=== PATIENT | female | born 1990 | race Caucasian/White ===

== ENCOUNTER 2018-07-25 00:44 | Outpatient (CLI) | payer MEDICAID, SELFPAY ==
--- NOTE | 2018-07-25 09:01 | DI.US_ITS ---
SYMPTOMS/DIAGNOSIS: DATING OB ULTRASOUND: OB ultrasound was performed utilizing first trimester protocol. biometry is consistent with a gestational age of 14 weeks 4 days and an EDC of 01/19/19. The placenta is anterior. No evidence of placenta previa. Visually there is a normal quantity of amniotic fluid. cardiac activity is observed at a rate 155 bpm. Many abnormalities cannot be diagnosed. A normal exam does not exclude a congenital anomaly. Radiology No. [id number] LMP: 04/11/18 Exam Date: 07/25/18 [facility] wks days on EDC ([facility]) Confirmed: HISTORY: dating PREDICTED GESTATIONAL AGE NUMBER 15 weeks with a range of 14 weeks to 16 weeks. 1 Determined by 1STUS___ LMP X HISTORY Info. pertaining to fetus # PLACENTA PRESENTATION Grade 0 Cephalic___ Anterior X Posterior___ Breech____ Right Left Transverse(head right___ Fundal___Low-lying___Previa___ Transverse(head left___ Varying X BIOMETRY AMNIOTIC FLUID BPD: 27 mm 14+5 weeks Normal HC: 102 mm 14+5 weeks Oligo Polyhydramnios AC: 83 mm 14+5 weeks FL: 14 mm 14+2 weeks AMNIOTIC FLUID INDEX >26 WK CRL: mm weeks Cisterna Magna: mm CI: 80 RUQ: LUQ Cerebellum: cm EFW: grams Percentile RLQ: LLQ Total: cms Composite AGE= 14+4 wks EDC by US 01/19/19 BIOPHYSICAL PROFILE ANATOMY IDENTIFIED SCORE 0/2 Heart: 4-Chamber X Rate: 155 BPM LVOT: RVOT: Amniotic Fluid(>2cms)____ Stomach: X Kidneys: Respirations (>30 secs) Bladder: Post. Fossa: Body Flex/Extension 3 vessel cord: Ventricles: cord insertion: X Lips:____ Extremity Flex/Extension spinal morphology: Nose: Total Score= Palate: NS=not seen
== END 2018-07-25 01:04 ==
PROVIDERS: PCP Family Medicine; Visit Provider Nurse Practitioner Family
DX: Z34.92 Encounter for supervision of normal pregnancy, unspecified, second trimester (principal)
CPT/HCPCS: 76801

== ENCOUNTER 2018-07-31 11:53 | Outpatient (CLI) | payer MEDICAID, SELFPAY ==
[2018-07-31 12:23] LABS: Abs Immature Grans 0.02 k/cumm (0.0-0.09); Absolute Basophil Count 0.03 k/cumm (0.0-0.2); Absolute Eosinophil Count 0.05 k/cumm (0.0-0.7); Absolute Lymphocyte Count 1.53 k/cumm (1.2-3.4); Absolute Monocyte Count 0.91 k/cumm (0.11-0.7); Basophils % 0.3; Eosinophils % 0.4; HCT 37.2 % (36.0-46.0); HGB 12.8 g/dL (12.0-15.5); Immature Grans % 0.2; Lymphocytes % 13.3; Mean Corp. HGB Concentration 34.4 g/dL (32.0-36.0); Mean Corpuscular Hemoglobin 30.8 pg (27.0-33.0); Mean Corpuscular Volume 89.4 fL (80-95); Monocytes % 7.9; Neutrophils % 77.9; Platelet Count 239 x1000/uL (130-400); RBC 4.16 m/cumm (4.00-5.20); RBC Distribution Width 13.9 % (11.7-14.6); White Blood Cell Count 11.54 k/cumm (4.4-10.8)
[2018-07-31 12:24] LABS: Absolute Neutrophil Count 8.99 k/cumm (1.2-6.7)
[2018-07-31 13:35] LABS: TSH (W/Ref FT4) 3.74 uIU/mL (0.358-3.74)
[2018-08-01 08:52] LABS: Hepatitis B Surface Ag Negative (NEGAT)
[2018-08-01 12:29] LABS: Rubella IgG Ab (UVM) Positive; Syphilis Serology (RPR) Negative (Negative); Varicella IgG Antibody Positive
[2018-08-01 13:08] LABS: HIV-1/2 Ag & Ab Screen Negative (NEGAT); Hepatitis C Ab w Rflx HCV PCR Negative (NEGAT)
== END 2018-07-31 12:13 ==
PROVIDERS: PCP Family Medicine; Visit Provider Advanced Practice Midwife
DX: Z34.90 Encounter for supervision of normal pregnancy, unspecified, unspecified trimester (principal)
CPT/HCPCS: 36415; 80055; 86787; 86803; 86850; 86900; 86901; 87340; 87389; 84443; 86592; 86762

== ENCOUNTER 2018-07-31 13:34 | Outpatient (REF) | payer MEDICAID, SELFPAY ==
--- NOTE | 2018-07-31 11:30 | PAPFT_PTH ---
PATIENT: Melissa De La Cruz LOC: YOUNG U#:[id number] AGE/SX: 28/F ROOM: RE07/31/[address]: Anup Morales RN : 1990 BED: DIS: 07/31/2018 SPEC #: [id number] RECD: 07/31/18 18:11 STATUS: MONIKA COLEMAN #: [id number] MARVA: 07/31/18 11:[address]: Anup Morales DEPT: [facility] Cytology RECD BY: Alicia Do ENTERED: 07/31/18 18:11 SP TYPE: PAPFT OTHR DR: Leonor Quezada Tissues: 1 - CX/ENDOCX FOR PAP SMEARS Procedures: PAP THIN PREP/[facility] Screening Comments: [id number]
[2018-07-31 15:22] LABS: *AMPHETAMINES SCREEN URINE Negative (Negative); *BARBITURATES SCREEN URINE Negative (Negative); *BENZODIAZEPINES SCREEN URINE Negative (Negative); Cannabinoids THC Negative (Negative); Cocaine Screen,Urine Negative (Negative); METHADONE URINE SCREEN Negative (Negative); OPIATES URINE SCREEN Negative (Negative)
[2018-07-31 15:29] LABS: Tricyclic Antidepressants Negative (Negative)
[2018-08-01 14:33] LABS: Chlamydia Result Negative; GC Result Negative; Specimen Description CERVIX
[2018-08-03 11:09] LABS: Buprenorphine Negative; Norbuprenorphine Negative
== END 2018-07-31 13:54 ==
LOC: LBN 13:34
PROVIDERS: PCP Family Medicine; Visit Provider Advanced Practice Midwife
DX: Z34.91 Encounter for supervision of normal pregnancy, unspecified, first trimester (principal); Z11.3 Encounter for screening for infections with a predominantly sexual mode of transmission; Z12.4 Encounter for screening for malignant neoplasm of cervix; Z11.51 Encounter for screening for human papillomavirus (HPV)
CPT/HCPCS: 80307; 87491; 87591; 88142; 87086

== ENCOUNTER 2018-08-22 00:10 | Outpatient (CLI) | payer MEDICAID, SELFPAY ==
--- NOTE | 2018-08-22 08:01 | DI.US_ITS ---
Predicted Gestational Age: Indication/History: 19 Wks Range: 18 to 20 Prior US done on: Determined by: First US LMP X History EDC by prior US: 01/16/19 ([facility]) For multiple gestations: Baby PLACENTA: Grade: I Location: X Anterior Posterior PRESENTATION: RT LT LOW LYING PREVIA Cephalic Trans (Head RT LT ) Varied X Breech BIOMETRY: Anatomy Identified: BPD: 38 mm 17.4 wks 5% 4 chamber Heart X Heart Rate 157 BPM HC: 147 mm 17.6 wks 4% LVOT X Post Fossa X AC: 141 mm 19.3 wks RVOT X Ventricles X FL: 27 mm 18.1 wks Stomach X Nose X Bladder X Lips X Cisterna Magna: 2.5 mm CI: 76 Kidneys X Palate X Cerebellum: 1.65 mm low 3 vessel cord X Spine X EFW: 253 grms 29TH % Cord Insertion X NS= not seen Composite Age (US) 18.2 wks Many abnormalities cannot be diagnosed. A normal exam does not exclude congenital abnormality. EDC by US 01/21/19 Amniotic Fluid Index Normal COMMENTS: RUQ: LUQ: RLQ: LLQ: Total: cm Biophysical Profile: Score 0/2 TIARA (>2cm) Respirations (>30 sec) Body flexion/extension Extremity flexion.extension TOTAL SCORE Comparison is made with 07/25/18. The fetus was in variable position during the exam. The placenta is anterior and fundal. The biometric measurements correspond to 18 weeks 2 days. The estimated weight corresponds to the 29th percentile. The BPD measurements and head circumference measurements correspond to the 5th percentile for gestational age. No abnormality is visible. The amniotic fluid amount appears normal. IMPRESSION: cranial measurements are low for gestational age however there is no visible anomaly.
== END 2018-08-22 00:30 ==
PROVIDERS: PCP Family Medicine; Visit Provider Advanced Practice Midwife
DX: Z34.92 Encounter for supervision of normal pregnancy, unspecified, second trimester (principal); Z36.89 Encounter for other specified antenatal screening
CPT/HCPCS: 76805

== ENCOUNTER 2018-10-16 08:14 | Outpatient (CLI) | payer MEDICAID, SELFPAY ==
[2018-10-16 14:23] LABS: HCT 35.8 % (36.0-46.0); HGB 12.2 g/dL (12.0-15.5); Mean Corp. HGB Concentration 34.1 g/dL (32.0-36.0); Mean Corpuscular Hemoglobin 31.2 pg (27.0-33.0); Mean Corpuscular Volume 91.6 fL (80-95); Mean Platelet Volume 10.4 fL (8.0-11.0); Platelet Count 275 x1000/uL (130-400); RBC 3.91 m/cumm (4.00-5.20); RBC Distribution Width 13.5 % (11.7-14.6); White Blood Cell Count 11.35 k/cumm (4.4-10.8)
[2018-10-16 14:50] LABS: Glucose,1 Hr (Glucola) 83 mg/dL (80-140)
== END 2018-10-16 08:34 ==
PROVIDERS: PCP Family Medicine; Visit Provider Obstetrics & Gynecology
DX: Z34.93 Encounter for supervision of normal pregnancy, unspecified, third trimester (principal)
CPT/HCPCS: 36415; 82950; 85027

== ENCOUNTER 2018-11-13 14:52 | Outpatient (CLI) | payer MEDICAID, SELFPAY ==
[2018-11-13 15:46] LABS: Abs Immature Grans 0.11 k/cumm (0.0-0.09); Absolute Basophil Count 0.02 k/cumm (0.0-0.2); Absolute Eosinophil Count 0.11 k/cumm (0.0-0.7); Absolute Lymphocyte Count 0.96 k/cumm (1.2-3.4); Absolute Monocyte Count 0.54 k/cumm (0.11-0.7); Absolute Neutrophil Count 8.71 k/cumm (1.2-6.7); Basophils % 0.2; Eosinophils % 1.1; HCT 34.3 % (36.0-46.0); HGB 11.6 g/dL (12.0-15.5); Immature Grans % 1.1; Lymphocytes % 9.2; Mean Corp. HGB Concentration 33.8 g/dL (32.0-36.0); Mean Corpuscular Hemoglobin 30.4 pg (27.0-33.0); Mean Platelet Volume 9.2 fL (8.0-11.0); Monocytes % 5.2; Neutrophils % 83.2; Platelet Count 502 x1000/uL (130-400); RBC 3.81 m/cumm (4.00-5.20); RBC Distribution Width 13.6 % (11.7-14.6); White Blood Cell Count 10.45 k/cumm (4.4-10.8)
[2018-11-14 16:25] LABS: CMV Ab, IgM Negative (Negative); Toxoplasma Ab, IgG Negative (Negative); Toxoplasma Ab, IgM Negative (Negative); Toxoplasma IgG Value <3 IU/mL
[2018-11-14 22:15] LABS: Parvovirus B19 Ab, IgG Negative (Negative); Parvovirus B19 Ab, IgM Negative (Negative)
[2018-11-16 12:35] LABS: Measles IgG Antibody Positive
[2018-11-17 09:39] LABS: Misc Referral (UVM) See Comments
== END 2018-11-13 15:12 ==
PROVIDERS: PCP Family Medicine; Visit Provider Obstetrics & Gynecology
DX: R21 Rash and other nonspecific skin eruption (principal)
CPT/HCPCS: 36415; 86765; 85025; 86645; 86747; 86777; 86778

== ENCOUNTER 2018-12-18 01:25 | Outpatient (CLI) | payer MEDICAID, SELFPAY ==
--- NOTE | 2018-12-18 10:53 | DI.US_ITS ---
SYMPTOM/DIAGNOSIS: EGA Z34.90 OB ULTRASOUND, LIMITED: 12/18 Limited third trimester protocol ultrasound was performed. biometry is consistent with gestational age of 34 weeks, 6 days and EDC 01/23/19. Placenta is anterior with no evidence of placenta previa. There is visually a mildly increased quantity of amniotic fluid and the TIARA is 23 consistent with borderline polyhydramnios. The fetus is in breech presentation. cardiac activity is noted at a rate of 150 BPM Predicted Gestational Age: Indication/History: 35 +6 Wks Range: 34 +6 to 36 +6 Prior US done on: Determined by: First US LMP History EDC by prior US: 01/16/19 For multiple gestations: Baby PLACENTA: Grade: II Location: Anterior PRESENTATION: RT LT LOW LYING PREVIA Cephalic Trans (Head RT LT ) Varied Breech XX BIOMETRY: Anatomy Identified: BPD: 83 mm 33 +2 wks 4 chamber Heart Heart Rate 150 BPM HC: 317 mm 35 +5 wks LVOT Post Fossa AC: 311 mm 35 wks RVOT Ventricles FL: 68 mm 35 +1 wks Stomach Nose Bladder Lips Cisterna Magna: mm CI: 79 Kidneys Palate Cerebellum: mm 3 vessel cord Spine EFW: 2545 grms 25 % Cord Insertion NS= not seen Composite Age (US) 34 +6 wks Many abnormalities cannot be diagnosed. A normal exam does not exclude congenital abnormality. EDC by US 01/23/19 Amniotic Fluid Index: Polyhydramnios COMMENTS: RUQ: 7.57 LUQ: 5.84 RLQ: 4.52 LLQ: 5.32 Total: 23.3 cm Biophysical Profile: Score 0/2 TIARA (>2cm) Respirations (>30 sec) Body flexion/extension Extremity flexion/extension TOTAL SCORE
== END 2018-12-18 01:45 ==
PROVIDERS: PCP Family Medicine; Visit Provider Obstetrics & Gynecology
DX: O32.1XX1 Maternal care for breech presentation, fetus 1 (principal); O40.3XX1 Polyhydramnios, third trimester, fetus 1; Z34.93 Encounter for supervision of normal pregnancy, unspecified, third trimester; Z36.85 Encounter for antenatal screening for Streptococcus B
CPT/HCPCS: 76816; 80307; 87081

== ENCOUNTER 2018-12-18 13:45 | Outpatient (REF) | payer MEDICAID, SELFPAY ==
[2018-12-18 15:29] LABS: *AMPHETAMINES SCREEN URINE Negative (Negative); *BARBITURATES SCREEN URINE Negative (Negative); *BENZODIAZEPINES SCREEN URINE Negative (Negative); Cannabinoids THC Negative (Negative); Cocaine Screen,Urine Negative (Negative); METHADONE URINE SCREEN Negative (Negative); OPIATES URINE SCREEN Negative (Negative)
[2018-12-18 15:36] LABS: Tricyclic Antidepressants Negative (Negative)
[2018-12-23 22:53] LABS: Buprenorphine Negative; Norbuprenorphine Negative
== END 2018-12-18 14:05 ==
LOC: LBN 13:45
PROVIDERS: PCP Family Medicine; Visit Provider Obstetrics & Gynecology
DX: Z34.93 Encounter for supervision of normal pregnancy, unspecified, third trimester (principal); Z36.85 Encounter for antenatal screening for Streptococcus B
CPT/HCPCS: 80307; 87081

== ENCOUNTER 2019-01-23 08:23 | Inpatient (IN) | payer MEDICAID, SELFPAY ==
[2019-01-23 09:44] LABS: Abs Immature Grans 0.05 k/cumm (0.0-0.09); Absolute Basophil Count 0.02 k/cumm (0.0-0.2); Absolute Eosinophil Count 0.03 k/cumm (0.0-0.7); Absolute Lymphocyte Count 1.36 k/cumm (1.2-3.4); Absolute Monocyte Count 0.75 k/cumm (0.11-0.7); Absolute Neutrophil Count 7.49 k/cumm (1.2-6.7); Basophils % 0.2; Eosinophils % 0.3; HCT 34.8 % (36.0-46.0); Immature Grans % 0.5; Mean Corp. HGB Concentration 34.5 g/dL (32.0-36.0); Mean Corpuscular Hemoglobin 31.4 pg (27.0-33.0); Mean Corpuscular Volume 91.1 fL (80-95); Mean Platelet Volume 10.6 fL (8.0-11.0); Monocytes % 7.7; Neutrophils % 77.3; Platelet Count 214 x1000/uL (130-400); RBC 3.82 m/cumm (4.00-5.20); RBC Distribution Width 14.7 % (11.7-14.6)
[2019-01-23] MEDS: Normal Saline Flush 10 ML SYR IVP (09:54)
[2019-01-23] MEDS: miSOPROStol 25 MCG TAB 50 MCG PO ×2 (10:29→14:33)
--- NOTE | 2019-01-23 21:36 | HPE_ITS ---
Date of service: 01/23/19 Time of Service: 10:00 Assessment and Plan Assessment and plan (1) Post-dates : Status: Acute Assessment and plan: Admit for cervical ripening and IOL for postdates. Will ripen with oral misoprostol and move to pitocin once cervix is favorable. GBS is negative. History of Present Illness History of Present Illness Chief Complaint: Post dates Narrative: 29 year old @ 41 weeks presents for induction of labor secondary to postdates. has been uncomplicated thus far. She is generally healthy with no chronic medical problems. [facility] Medical History (Updated 01/23/19 @ 21:42 by Otilio Najera MD) eczema (Acute) Natural family planning (Acute) has used with success. Positive test (Acute) Surgical History (Updated 07/20/18 @ 16:23 by Aruna Fuentes NP) wisdom teeth extraction (~2007) Family History Mother No problems noted. Father No problems noted. Sister No problems noted. Sister No problems noted. Sister No problems noted. Sister No problems noted. Sister No problems noted. Sister No problems noted. Sister No problems noted. Brother No problems noted. Brother No problems noted. Brother No problems noted. Grandfather Heart disease Grandfather No problems noted. Grandmother Pulmonary embolism Grandmother Heart disease Daughter No problems noted. Daughter No problems noted. Daughter No problems noted. Social History Smoking/Tobacco Use Status: Never Alcohol Intake: never Substance use type: does not use Female Reproductive History Menstrual Age of Menarche: 15 Duration of menses: 3-5 days control method: natural family planning History History 5 Para 4 Hx # Term Pregnancies 4 Multiple births 0 Hx # Pregnancies 0 Ectopic pregnancies 0 AB induced 0 Hx Number of Living Children 4 AB spontaneous 0 Past Pregnancies Del. Date GA/Weeks # Outcome Route Wgt Sex Labor Lgth Anesthes ia Location Prov Complic 07/25/12 41 No Successful vaginal 7 lb 4 oz Female 15 hrs ashwin pereyra md 12/13/13 41 No Successful vaginal 7 lb 2 oz Female iol for post date s 7.5 hrs clyde sultana 07/30/15 40 No Successful vaginal 7 lb 14 oz Female iol for post hugh es 12 hrs clyde sultana 04/08/17 39 No Successful vaginal 5 lb 5 oz Female iol iugr, 11 hrs rupal hwang md Delivery Date: 07/25/12 On 07/31/18 @ 10:58 BRANDOYARITZAA laceration, yet pt does know degree. as per pt uneventful delivery. al Delivery Date: 12/13/13 On 07/31/18 @ 11:00 BRANDOANEA uneventful delivery, intact. al Delivery Date: 07/30/15 On 07/31/18 @ 11:02 BRANDOANEA uneventful, intact. al Delivery Date: 04/08/17 On 07/31/18 @ 11:04 BRANDO,ANEA uneventful, intact al Meds Home Medications and Allergies Home Medications Medication Instructions Recorded Confirmed Type prenat.vits,grey,vbc-vbhx-ykuuv 1 tab PO DAILY 11/06/18 01/23/19 History Allergies Allergy/AdvReac Type Severity Reaction Status Date / Time Ingredient in Belgian Food Allergy Intermediate Itchy Uncoded 01/16/19 10:26 Rash, swelling Exam Other: On exam cx was FT/60%/-3 with presenting part not in pelvis. Results Labs Result diagrams: 01/23/19 09:28 Labs: Laboratory Results - last 24 hr 01/23/19 01/23/19 09:28 09:28 WBC 9.70 RBC 3.82 L Hgb 12.0 Hct 34.8 L MCV 91.1 MCH 31.4 MCHC 34.5 RDW 14.7 H Plt Count 214 MPV 10.6 Immature Gran % 0.5 Neutrophils % 77.3 Lymphocytes % 14.0 Monocytes % 7.7 Eosinophils % 0.3 Basophils % 0.2 Absolute Neutrophils 7.49 H Absolute Lymphocytes 1.36 Absolute Monocytes 0.75 H Absolute Eosinophils 0.03 Absolute Basophils 0.02 Patient ABO/Rh A Positive Antibody Screen Negative
--- NOTE | 2019-01-23 21:43 | W.PM.PROGNOT ---
Date of Service Date of service: 01/23/19 Time of Service: 20:00 Assessment and Plan Assessment and plan (1) Post-dates : Start date: 01/23/19 Status: Acute Assessment and plan: Continue cervical ripening with misoprostol. Will attempt amniotomy when further cervical dilatation is noted. Subjective Subjective Interval history since last seen: Contractions frequent but mild. Doing well. Objective Objective Clinical Data: Abnormal lab results 01/23/19 Range/Units 09: RBC 3.82 L (4.00-5.20) m/cumm Hct 34.8 L (36.0-46.0) % RDW 14.7 H (11.7-14.6) % Absolute Neutrophils 7.49 H (1.2-6.7) k/cumm Absolute Monocytes 0.75 H (0.11-0.7) k/cumm Laboratory Results WBC 9.70 k/cumm (4.4-10.8) 01/23/19 09: RBC 3.82 m/cumm (4.00-5.20) L 01/23/19 09:28 Hgb 12.0 g/dL (12.0-15.5) 01/23/19 09:28 Hct 34.8 % (36.0-46.0) L 01/23/19 09:28 MCV 91.1 fL (80-95) 01/23/19 09:28 MCH 31.4 pg (27.0-33.0) 01/23/19 09: MCHC 34.5 g/dL (32.0-36.0) 01/23/19 09:28 RDW 14.7 % (11.7-14.6) H 01/23/19 09:28 Plt Count 214 x1000/uL (130-400) 01/23/19 09:28 MPV 10.6 fL (8.0-11.0) 01/23/19 09:28 Immature Gran % 0.5 01/23/19 09:28 Neutrophils % 77.3 01/23/19 09:28 Lymphocytes % 14.0 01/23/19 09:28 Monocytes % 7.7 01/23/19 09:28 Eosinophils % 0.3 01/23/19 09:28 Basophils % 0.2 01/23/19 09:28 Absolute Neutrophils 7.49 k/cumm (1.2-6.7) H 01/23/19 09:28 Absolute Lymphocytes 1.36 k/cumm (1.2-3.4) 01/23/19 09:28 Absolute Monocytes 0.75 k/cumm (0.11-0.7) H 01/23/19 09:28 Absolute Eosinophils 0.03 k/cumm (0.0-0.7) 01/23/19 09:28 Absolute Basophils 0.02 k/cumm (0.0-0.2) 01/23/19 09:28 Patient ABO/Rh A Positive 01/23/19 09:28 Antibody Screen Negative 01/23/19 09:28 Procedures Other Procedure Description/Findings: A bedside ultrasound was performed showing fetus to be in ashley breech presentation. An ECV was performed at the bedside easily with minimal effort on rotation. Ultrasound confirmed rotation to cephalic presentation.
== END 2019-01-25 15:10 | disposition home or self-care (01) | DRG 807 ==
PROVIDERS: Admitting Provider Obstetrics & Gynecology; PCP Family Medicine; Visit Provider Obstetrics & Gynecology
DX: O48.0 Post-term pregnancy (principal); Z37.0 Single live birth; Z3A.41 41 weeks gestation of pregnancy
CPT/HCPCS: 36415; 86850; 86900; 86901; 99223; 99233; 85025; J3490

== ENCOUNTER 2020-12-04 03:50 | Outpatient (CLI) | payer MEDICAID, SELFPAY ==
[2020-12-04 11:39] LABS: Abs Immature Grans 0.04 10^3/uL (0.0-0.06); Absolute Eosinophil Count 0.02 10^3/uL (0.0-0.7); Absolute Lymphocyte Count 1.81 10^3/uL (1.2-3.4); Basophils % 0.2; Eosinophils % 0.2; HCT 37.9 % (36.0-46.0); HGB 12.8 g/dL (11.2-15.7); Immature Grans % 0.3; Lymphocytes % 14.9; MCH 30.3 pg (27.0-33.0); MCHC 33.8 % (32.0-36.0); MCV 89.8 fL (80-95); MPV 10.4 fL (8.0-11.0); Monocytes % 4.9; Neutrophils % 79.5; Nucleated RBC 0 %; Platelet Count 259 10^3/uL (130-400); RBC 4.22 10^6/uL (3.93-5.22); RDW-SD 42.5 fL; WBC 12.15 10^3/uL (4.4-10.8)
[2020-12-04 11:41] LABS: Absolute Basophil Count 0.02 10^3/uL (0.0-0.2); Absolute Neutrophil Count 9.66 10^3/uL (1.2-6.7)
[2020-12-05 09:53] LABS: Hepatitis B Surface Ag Negative (Negative)
[2020-12-05 10:20] LABS: Hepatitis C Ab w Rflx HCV PCR Negative (Negative)
[2020-12-05 10:39] LABS: HIV-1/2 Ag & Ab Screen Negative (Negative)
[2020-12-05 11:18] LABS: Varicella IgG Antibody Positive (See Note)
[2020-12-05 11:22] LABS: Rubella IgG Ab (UVM) Positive (See Note)
[2020-12-06 12:52] LABS: Syphilis Total Ab w/Reflex Nonreactive (Nonreactive)
== END 2020-12-04 03:51 | disposition home or self-care (01) ==
LOC: LBO 03:50
PROVIDERS: Advanced Practice Midwife; PCP Family Medicine; Visit Provider Advanced Practice Midwife
DX: Z34.91 Encounter for supervision of normal pregnancy, unspecified, first trimester (principal); Z11.4 Encounter for screening for human immunodeficiency virus [HIV]; Z11.59 Encounter for screening for other viral diseases; Z01.84 Encounter for antibody response examination; Z3A.11 11 weeks gestation of pregnancy
CPT/HCPCS: 36415; 86787; 86803; 86850; 86900; 86901; 87340; 87389; 85025; 86762; 86780

== ENCOUNTER 2020-12-04 14:42 | Outpatient (REF) | payer MEDICAID, SELFPAY ==
[2020-12-04 14:16] LABS: *AMPHETAMINES SCREEN URINE Negative (Negative); *BARBITURATES SCREEN URINE Negative (Negative); *BENZODIAZEPINES SCREEN URINE Negative (Negative); Cannabinoids THC Negative (Negative); Cocaine Screen,Urine Negative (Negative); METHADONE URINE SCREEN Negative (Negative); OPIATES URINE SCREEN Negative (Negative); Tricyclic Antidepressants Negative (Negative)
[2020-12-05 14:43] LABS: Chlamydia Result Negative (Negative); GC Result Negative (Negative)
[2020-12-10 19:22] LABS: Buprenorphine Negative ng/mL (Cutoff: 5.0); Norbuprenorphine Negative ng/mL (Cutoff: 2.5)
== END 2020-12-04 14:43 | disposition home or self-care (01) ==
LOC: LBN 14:42
PROVIDERS: PCP Family Medicine; Visit Provider Advanced Practice Midwife
DX: Z34.91 Encounter for supervision of normal pregnancy, unspecified, first trimester (principal); Z11.3 Encounter for screening for infections with a predominantly sexual mode of transmission; Z3A.11 11 weeks gestation of pregnancy
CPT/HCPCS: 80307; 87491; 87591; 87086

== ENCOUNTER 2021-01-26 02:04 | Outpatient (CLI) | payer MEDICAID, SELFPAY ==
--- NOTE | 2021-01-26 07:15 | DI.US_ITS ---
Exam(s) US OB 2-3 TRIMESTER EXAM: US OB 2-3 TRIMESTER CLINICAL HISTORY: SURVEY,Z34.92. TECHNIQUE: Transabdominal obstetrical ultrasound was performed. COMPARISON: No exams were available for comparison FINDINGS: There is a single viable intrauterine gestation with cardiac activity identified-150 bpm. Amniotic fluid: There is a normal amount of amniotic fluid. Placental location: The placenta is posterior grade 0,with no evidence of placenta previa.Distance fr om the tip of placenta to the internal cervical os is 3.1 cm. The distance from cord insertion to th e marginal aspect of the placenta is 1.97 cm. ANATOMY: A 3 vessel umbilical cord is seen. A four-chamber cardiac view was obtained. Right and left ventricular outflow tracts were imaged. There are no obvious abnormalities of the spinal column evident. There is no obvious abnormal ity of the anterior abdominal wall. stomach and urinary bladder are identified and there is no evidence of hydronephrosis. No abnormalities of the upper lip region are identified. No evidence of choroid plexus cysts i n the brain. Dating parameters place this at approximately 18 weeks and 6 days gestational age. BPD measures 18 weeks and 0 days HC measures 19 weeks and 1 day AC measures 19 weeks and 2 days FL measures 18 weeks and 6 days Estimated weight is 270 gm-0 pounds 10 ounces Fetus is at the 56th percentile on the Hadlock scale. IMPRESSION:: Single viable intrauterine gestation which is approximately 18 weeks and 6 days gestati onal age, implying an URSZULA of June 23, 2021. There are no obvious anomalies evident on today's study. The placenta is posterior with no evidence of placenta previa. There is a normal amount of amniotic fluid. DATA REPOSITORY:
== END 2021-01-26 02:24 ==
PROVIDERS: PCP Family Medicine; Visit Provider Advanced Practice Midwife
DX: Z34.92 Encounter for supervision of normal pregnancy, unspecified, second trimester (principal); Z3A.18 18 weeks gestation of pregnancy
CPT/HCPCS: 76805

== ENCOUNTER 2021-03-31 02:26 | Outpatient (CLI) | payer MEDICAID, SELFPAY ==
[2021-03-31 11:13] LABS: HCT 36.8 % (36.0-46.0); HGB 12.4 g/dL (11.2-15.7); MCH 31.3 pg (27.0-33.0); MCHC 33.7 % (32.0-36.0); MCV 92.9 fL (80-95); MPV 10.1 fL (8.0-11.0); Platelet Count 226 10^3/uL (130-400); RBC 3.96 10^6/uL (3.93-5.22); RDW 13.2 % (11.7-14.6); RDW-SD 44.9 fL; WBC 10.84 10^3/uL (4.4-10.8)
[2021-03-31 11:22] LABS: Glucose,1 Hr (Glucola) 132 mg/dL (80-140)
== END 2021-03-31 02:27 | disposition home or self-care (01) ==
LOC: LBO 02:27
PROVIDERS: PCP Family Medicine; Visit Provider Obstetrics & Gynecology Gynecology
DX: Z34.92 Encounter for supervision of normal pregnancy, unspecified, second trimester (principal)
CPT/HCPCS: 36415; 82950; 85027

== ENCOUNTER 2021-06-02 20:45 | Outpatient (REF) | payer MEDICAID, SELFPAY ==
[2021-06-02 16:06] LABS: *AMPHETAMINES SCREEN URINE Negative (Negative); *BARBITURATES SCREEN URINE Negative (Negative); *BENZODIAZEPINES SCREEN URINE Negative (Negative); Cannabinoids THC Negative (Negative); Cocaine Screen,Urine Negative (Negative); METHADONE URINE SCREEN Negative (Negative); OPIATES URINE SCREEN Negative (Negative)
[2021-06-02 16:15] LABS: Tricyclic Antidepressants Negative (Negative)
[2021-06-06 09:41] LABS: Buprenorphine Negative ng/mL (Cutoff: 5.0); Norbuprenorphine Negative ng/mL (Cutoff: 2.5)
== END 2021-06-02 20:46 | disposition home or self-care (01) ==
LOC: LBN 20:45
PROVIDERS: PCP Family Medicine; Visit Provider Obstetrics & Gynecology
DX: Z34.93 Encounter for supervision of normal pregnancy, unspecified, third trimester (principal)
CPT/HCPCS: 80307; 87081

== ENCOUNTER 2021-06-25 06:32 | Outpatient (CLI) | payer MEDICAID, SELFPAY ==
[2021-06-25 15:35] VITALS: BP 118/72; PULSE 87; TEMP 36.9
--- NOTE | 2021-06-25 17:17 | W.OBNST ---
Date of service: 06/25/21 Time of Service: 17:17 NST Evaluation Reason for NST Reasons for Nonstress Test: POSTDATES Gestational Age Gestational Age in Weeks and Days: 40 Weeks and 0Days Test and Monitor Explained Test/Monitor Explained: Test Explained, Monitor Explained and Patient Verbalized Understanding Vital Signs Blood Pressure: 118/72 Pulse: 87 Temperature: 98.4 F NST Information Date on Monitor: 06/25/21 Time on Monitor: 15:40 Date off Monitor: 06/25/21 Time off Monitor: 16:45 Total Time on Monitor: 65 NST Interventions: PO Hydration NST Evaluation Patient States Movement: Present FHR Baseline: 125 Variability: Moderate 6-25 bpm Accelerations: 15x15 Decelerations: None NST Results: Reactive Note NST Note Note: Pt here for NST on her EDC. She says she felt some intermittent ctxs this afternoon but nothing regular. Declines cervical check or membrane stripping. Has f/u visit already scheduled on tuesday. Reviewed reasons to call. NST Reviewed and Verified by: Michelle Woodard
[2021-06-25 17:19] VITALS: BP 118/72; PULSE 87; TEMP 36.9
== END 2021-06-25 16:47 | disposition home or self-care (01) ==
LOC: BCD 06:32 → OBS 15:33
PROVIDERS: PCP Family Medicine; Visit Provider Obstetrics & Gynecology
DX: O48.0 Post-term pregnancy (principal); Z3A.40 40 weeks gestation of pregnancy
CPT/HCPCS: 59025

== ENCOUNTER 2021-06-29 08:47 | Outpatient (CLI) | payer MEDICAID, SELFPAY ==
[2021-06-29 11:11] VITALS: BP 127/71; PULSE 75
[2021-06-29 11:26] VITALS: BP 127/71; PULSE 75; TEMP 37.3
--- NOTE | 2021-06-29 13:28 | W.OBNST ---
Date of service: 06/29/21 Time of Service: 13:28 NST Evaluation Reason for NST Reasons for Nonstress Test: POSTDATES Gestational Age Gestational Age in Weeks and Days: 40 Weeks and 6Days Test and Monitor Explained Test/Monitor Explained: Test Explained Vital Signs Blood Pressure: 127/71 Pulse: 75 Temperature: 99.1 F Urine Results Urine Protein: Negative Urine Ketones: Negative Urine Glucose: Negative Urine Blood: Negative NST Information Date on Monitor: 06/29/21 Time on Monitor: 11:04 Date off Monitor: 06/29/21 Time off Monitor: 11:36 Total Time on Monitor: 32 NST Interventions: PO Hydration Contraction Frequency: none noted NST Evaluation Patient States Movement: Present FHR Baseline: 135 Variability: Moderate 6-25 bpm Accelerations: 15x15 Decelerations: None NST Results: Reactive Note NST Note Note: Reactive NST. Patient is agreeable for induction of labor on the morning of 07/01/2021. She was instructed to call the center at 8:00 and check for bed availability. NST Reviewed and Verified by: Yamile Gonzalez
[2021-06-29 13:30] VITALS: BP 127/71; PULSE 75; TEMP 37.3
== END 2021-06-29 12:00 | disposition home or self-care (01) ==
LOC: BCD 09:00 → OBS 11:01
PROVIDERS: PCP Family Medicine; Visit Provider Obstetrics & Gynecology Gynecology
DX: O48.0 Post-term pregnancy (principal); Z3A.40 40 weeks gestation of pregnancy
CPT/HCPCS: 59025

== ENCOUNTER 2021-07-01 10:40 | Inpatient (IN) | payer MEDICAID, SELFPAY ==
[2021-07-01] VITALS (64 sets, daily range): BP systolic 107–122; BP diastolic 59–75; PULSE 0–101; RESP 16–18; TEMP 36.6–36.9; O2SAT 97–99
[2021-07-01 11:42] LABS: HCT 35.6 % (36.0-46.0); HGB 12.7 g/dL (11.2-15.7); MCH 32.3 pg (27.0-33.0); MCHC 35.7 % (32.0-36.0); MCV 90.6 fL (80-95); MPV 10.6 fL (8.0-11.0); Platelet Count 213 10^3/uL (130-400); RBC 3.93 10^6/uL (3.93-5.22); RDW 12.9 % (11.7-14.6); RDW-SD 42.8 fL; WBC 12.35 10^3/uL (4.4-10.8)
[2021-07-01 11:52] LABS: Source Nasal/Nares
[2021-07-01] MEDS: Oxytocin/Normal Saline 30 UNIT/500 ML BAG 2 UNITS IV (11:57)
[2021-07-01] MEDS: Penicillin G POT. 5,000,000 UNITS in Normal Saline 100 ML 200 UNITS IVPB (12:42)
--- NOTE | 2021-07-01 12:43 | HPE_ITS ---
Date of service: 07/01/21 Time of Service: 12:43 Assessment and Plan Assessment and plan (1) Elective induction of labor planned: Status: Acute Assessment and plan: Will start induction with pitocin as this has worked well for her in the past. (2) Group B streptococcal carriage complicating : Status: Acute Assessment and plan: Will start PCN for GBS ppx. OB-HPI Labor/Delivery History of Present Illness Reason for Visit: Induction Chief Complaint: Scheduled Induction of Labor Indication for Induction: Post Date. URSZULA Calculator Estimated Delivery Date Method Current WG Current Estimate 06/23/21 LMP (Certain) 41w 1d Other Estimates 06/25/21 Ultrasound #1 40w 6d History of Present Expected Delivery Route/Plan expected, 's name is Jaime CROCKER care per patient request Breast feeding Does not intend COVID vaccine for herself or her Specific Issues/Plan 1. Grandmultip 2. History of IUGR 3. GBS positive. Will need ABX in labor Review of Systems Narrative: Feels well Constitutional Constitutional: Denies chills and Denies fever(s) Gastrointestinal Comments: No nausea, vomiting, diarrhea Genitourinary Genitourinary: Reports system reviewed and no additional complaints, except as documented Musculoskeletal Comments: Denies regular contractions though she has felt more then usual since arriving at the center Psychiatric Comments: Mood is good PFSH All Active Problems (Updated 07/01/21 @ 13:24 by Michelle Woodard MD) Elective induction of labor planned (Acute) Group B streptococcal carriage complicating (Acute) (Acute) eczema (Acute) Medical History (Updated 07/01/21 @ 13:24 by Michelle Woodard MD) Natural family planning has used with success. Surgical History wisdom teeth extraction (~2007) Family History Grandfather Heart disease Cancer Grandmother Pulmonary embolism Grandmother Heart disease Social History Smoking/Tobacco Use Status: Never Smoking risk assessment performed?: Yes Alcohol Intake: never Substance use type: does not use Household members: spouse and children Housing: house Number of Children: 5 Education Level: high school current occupation: homemaker Additional Social history: H- Surya , D-Lainey, Natalie, Luisa, Saida, Lamar Female Reproductive History Menstrual Age of Menarche: 15 Duration of menses: 3-5 days control method: natural family planning History History 6 Para 5 Hx # Term Pregnancies 5 Multiple births 0 Hx # Pregnancies 0 Ectopic pregnancies 0 AB induced 0 Hx Number of Living Children 5 AB spontaneous 0 Past Pregnancies Del. Date GA/Weeks # Outcome Route Wgt Sex Labor Lgth Anesthes ia Location Prov Complic 07/25/12 41 No Successful vaginal 7 lb 4 oz Female 15 hrs ashwin pereyra md 12/13/13 41 No Successful vaginal 7 lb 2 oz Female iol for post date s 7.5 hrs clyde crocker 07/30/15 40 No Successful vaginal 7 lb 14 oz Female iol for post hugh es 12 hrs clyde crocker 04/08/17 39 No Successful vaginal 5 lb 5 oz Female iol iugr, 11 hrs rupal hwang md 01/24/19 41 No Successful vaginal 6 lb 13 oz Female [address] Otilio Najera Delivery Date: 07/25/12 Last Updated by: Anup Morales CNM laceration, yet pt does know degree. as per pt uneventful delivery. al Delivery Date: 12/13/13 Last Updated by: Anup Morales CNM uneventful delivery, intact. al Delivery Date: 07/30/15 Last Updated by: Anup Morales CNM uneventful, intact. al Delivery Date: 04/08/17 Last Updated by: Anup Morales CNM uneventful, intact al Meds Allergies and Home Medications Allergies Allergy/AdvReac Type Severity Reaction Status Date / Time Ingredient in Amharic Food Allergy Intermediate Itchy Uncoded 07/01/21 11:17 Rash, swelling Home Medications Medication Instructions Recorded Confirmed Type prenat.vits,grey,oet-fuzl-maynh 1 tab PO DAILY 11/06/18 07/01/21 History Exam Physical Exam Vital signs: Temp Pulse Resp BP Pulse Ox 98.4 F 80 16 118/67 99 07/01/21 11:02 07/01/21 11:02 07/01/21 11:02 07/01/21 11:02 07/01/21 11:02 Vital Signs Reviewed: Yes Detailed Labor and Delivery Exam Dilation: 1 Effacement (%): 50 station: -3 Cervix position: posterior Consistency: medium Harrington Score: Cervical Points Exam 0 1 2 3 Dilation Closed 1-2cm 3-4 cm 5-6cm Effacement 0-30% 40-50% 60-70% 80% Consistency Firm Medium Soft Station -3 -2 -1,0 +1,+2 Position Posterior Mid Anterior Amniotic Membrane Status: Intact Fetus A Heart Rate Baseline: 140 Monitor Accelerations: 15 X 15 Monitor Decelerations: None Variability: Moderate (6-25 BPM) Presentation: Cephalic Categories: Category I Est. Weight: 7 lb HEENT Exam HEENT Exam: Normal Detailed HEENT Exam Head: Present normocephalic and atraumatic Detailed Abdominal Exam Comments: gravid, nontender Extremities Exam Extremities Exam: Normal Skin Exam Skin Exam: Normal Detailed Neurological Exam Neurological: Present alert, oriented X3 and CN II-XII intact Psychiatric Exam Psychiatric Exam: Normal DetailedPsychiatric Exam Psychiatric: Present normal affect, normal thought process and cooperative Results Results Group Beta Strep: Positive Blood Type: A+ Rubella Status: Immune Varicella Immunity: Immune Abnormal Lab Findings: Abnormal Labs 07/01/21 11:35 WBC 12.35 H Hct 35.6 L Risk Assessment Risk for Shoulder Dystocia Historical/Initial OB: NEGATIVE FOR: Pelvic Abnormality, Pre- BMI>30, Previous Shoulder Dystocia or Previous Macrosomia Date/Initial: 06/02/21 Delivery Plan @ 36wks: Risk for Pre-Eclampsia Date Initiated/Initials: 07/31/18 al Yes, if one or more: NEGATIVE FOR: Hx Pre-E/Gest HTN, Chronic HTN, Multiple Gestation, Pre-gestational DM, Renal Disease, Systemic Lupus or APA Syndrome Yes, if 2 or more: POSITIVE FOR: Previous IUGR; NEGATIVE FOR: Nulliparity, Age>= 35 yrs, >10yr btwn pregnancies, BMI>30, ethinicty or Mother/Sister w/ Pre-E Risk for Post- Hemorrhage Initial: POSITIVE FOR: Grand Multiparity; NEGATIVE FOR: Multiple Gestation, Previous PPH, Known Clotting Deficiency or Anticoagulation Counseled re: Active Management: Yes Date/Initials: 06/02/2021 Risks Reviewed Risks Reviewed Upon Admission: Yes
[2021-07-01 12:44] LABS: COVID-19 PCR Negative (Negative)
[2021-07-01] MEDS: Penicillin G POT. 3,000,000 UNITS in Normal Saline 50 ML 100 UNITS IVPB (17:05)
--- NOTE | 2021-07-01 18:45 | W.PM.PROGNOT ---
Date of Service Date of service: 07/01/21 Time of Service: 18:45 Assessment and Plan Assessment and plan (1) Elective induction of labor planned: Status: Acute Assessment and plan: Pit was bumped down from 10 to 8 due to pt discomfort. S/p 2 doses of PCN. Will continue with pitocin. Pain management as desired by pt. Anticipate NVD. Subjective Subjective Interval history since last seen: Pt getting more uncomfortable with contractions. Still coping well. Exam Narrative Exam Narrative: Visibly more uncomfortable Manual OB Exam: dilated 5, effaced (90) and station -2 Amniotic Fluid: clear Other: Ruptured on exam at 16:30. Objective Last Vital Signs Temp 97.9 F 07/01/21 15:14 Pulse 70 07/01/21 18:43 Resp 16 07/01/21 15:14 BP 122/75 07/01/21 18:43 Pulse Ox 99 07/01/21 11:02 Laboratory Results - last 24 hr 07/01/21 07/01/21 07/01/21 11:00 11:35 11:35 WBC 12.35 H RBC 3.93 Hgb 12.7 Hct 35.6 L MCV 90.6 MCH 32.3 MCHC 35.7 RDW 12.9 Plt Count 213 MPV 10.6 COVID-19 Source Nasal/Nares SARS-CoV-2 (PCR) Negative Patient ABO/Rh A Positive Antibody Screen NEGATIVE
[2021-07-02 00:30] VITALS: BP 115/75; PULSE 70; RESP 18; TEMP 36.8; O2SAT 97
[2021-07-02 07:45] VITALS: BP 111/70; PULSE 70; RESP 16; TEMP 36.6; O2SAT 97
--- NOTE | 2021-07-02 09:14 | W.OBDELIVERY ---
Date of service: 07/01/21 Time of Service: 20:30 OB Labor/ Delivery Information Baby A Delivery Delivery Method: Spontaneaous Presentation: Cephalic Vertex Position: Right Occipital Anterior Cord Description-Baby A: 3 Vessels and Nuchal Cord (x3) Amniotic Fluid: Clear Estimated Blood Loss: 300ml Delivery Outcome: Liveborn Complications: none Infant Transferred: Remains with Mother Providers Doctor: Michelle Woodard Nurse: Maranda Hartman Nurse: Nancy Hernandez Labor/Delivery Information Number of Babies in Womb: 1 Steroids Given: None Reason Steroids Not Administered: N/A Group Beta Strep: Positive Antibiotics Administered: Yes Number of Doses of Antibiotics: 2 Rubella Status: Immune Blood Type: A+ Varicella Immunity: Immune Maternal Complications: None Shoulder Dystocia: No Stages of Labor Onset of Labor Date: 07/01/21 Onset of Labor Time: 11:05 Complete Dilatation Date: 07/01/21 Complete Dilatation Time: 20:04 Labor - Stage 1 Duration: 0 minutes ROM Baby A: 07/01/21 ROM Baby A: 16:36 ROM Total Time- Baby A: [id number] Infant Delivery Date-Baby A: 07/01/21 Infant Delivery Time-Baby A: 20:11 Labor Stage 2 Duration: 7 minutes Placenta Delivery Date-Baby A: 07/01/21 Placenta Delivery Time-Baby A: 20:19 Labor-Stage 3 Duration: 8 minutes Total Length of Labor-Baby A: 9 hours and 6 minutes Placenta Cultured: No Placenta Status: Delivered Baby A Infant Gender: Male Gestational Status: Term (39-41.6 wks) Gestational Age in Weeks/Days: 41 Weeks and 1 Days weight: 7 lb 9 oz Length-Baby A: 21 in Head Circumference-Baby A: 13.75 in Score-1 Minute Interval(Baby A) Heart Rate-1 minute: 100 BPM or Greater Respiratory Effort- 1 minute: Slow Respiration/Weak Cry Muscle Tone-1 minute: Active Movement Reflex Response-1 minute: Prompt Response Color-1 minute: Bluish Hands or Feet Total Score-1 minute: 8 Score-5 Minute Interval(Baby A) Heart Rate- 5 minute: 100 BPM or Greater Respiratory Effort-5 minute: Spontaneous/Strong Cry Muscle Tone-5 minute: Active Movement Reflex Response-5 minute: Prompt Response Color-5 minute: Bluish Hands or Feet Total Score- 5 minute: 9 Note: The pt was found to be fully dilated. She pushed <10mins to deliver the 's head in KERRY position followed by the shoulders and the rest of the body. The baby was placed on mom's abdomen. After >1min the cord was clamped x2 and cut. Cord blood collected. The placenta delivered with gentle cord traction and fundal massage and appeared intact. Fundus was firm with good hemostasis. Mom and baby stable at time of note.
--- NOTE | 2021-07-02 13:17 | W.PM.OBPNV1 ---
Date of service: 07/02/21 Time of Service: 13:17 Assessment and Plan Assessment and plan (1) Vaginal delivery: Status: Acute Assessment and plan: Satisfactory PP course. Pt is debating being discharged today or in am. Discussed pros and cons with pt. She will notify me of her decision later today. Subjective Subjective Interval history: PPD 1 . No lacerations. successfully Patient comments: No complaints Patient's Mood: Good. baby status: Doing well, Nursing well, Rooming in and Strong Bonding Observed Exam Physical Exam Vital signs: Temp Pulse Resp BP Pulse Ox 97.9 F 70 16 111/70 97 07/02/21 07:45 07/02/21 07:45 07/02/21 07:45 07/02/21 07:45 07/02/21 07:45 Vital Signs Reviewed: Yes Constitutional Constitutional: no acute distress HEENT Exam HEENT Exam: Not Done Neck Exam Neck Exam: Not Done Respiratory Exam Respiratory Exam: Normal Cardiovascular Exam Cardiovascular Exam: Normal Abdominal Exam Comments: non-tender to palpation. No diastasis Fundal Exam Fundus: Below Umbilicus Rectal Exam Rectal Exam: Not Done Extremities Exam Extremity Exam: Normal Back/Spine/Pelvis Exam Back Exam: Not Done Skin Exam Skin Exam: Normal Neurological Exam Neurological Exam: Normal Psychiatric Exam Psychiatric Exam: Normal Results Hemoglobin/Hematocrit: Hgb 12.7 g/dL (11.2-15.7) 07/01/21 11:35 Hct 35.6 % (36.0-46.0) L 07/01/21 11:35 Abnormal Lab Findings: Abnormal Labs 07/01/21 11:35 WBC 12.35 H Hct 35.6 L
--- NOTE | 2021-07-02 17:28 | W.PM.OBDISCH ---
Date of service: 07/02/21 Time of Service: 17:28 DS: Diagnosis Discharge Diagnosis (1) Vaginal delivery: Status: Acute Asessment and Plan: Spontaneous vaginal delivery at 41 weeks 1 day EGA on 07/01/2021. Male who will be named Marcio Russell Discharge Plan Disposition Patient Disposition: HOME Condition: Good Discharge Details Reason For Visit: Induction Admit Date/Time: 07/01/21 10:40 Admit Provider: Michelle Woodard Attending Provider: Michelle Woodard Primary Care Provider: Leonor Queazda [facility] Course Hospital Course: Patient was admitted on 07/01/2021 at 41 weeks 1 day estimated stational age for a postdates induction of labor. She was administered IV oxytocin with a spontaneous vaginal delivery on the evening of the day of admission. She was discharged home on day 1. Patient was instructed to [facility] in the event depression anxiety but otherwise we will not schedule a 2-week visit at this time. She will have a 6-week visit. Home Meds and New Rx's Prescriptions: No Action prenat.vits,grey,doo-fmyr-kcouo tablet 1 tab PO DAILY 0RF Discharge Instructions Stand Alone Forms: BC Instructions, BC Post Vaginal Deliver Activity:: Activity as Tolerated Equipment/Supplies:: No Equipment Needed Diet:: As Tolerated Discharge Orders Discharge Orders: Discharge Order (Routine); Ordered 07/02/21 Ordered By: Yamile Gonzalez OB:DS Summary Summary Vaginal Delivery Method: Spontaneaous Episiotomy Description: None Laceration Description: None Laceration Extension: N/A Contraception Discussed Contraception Discussed: No (Patient uses natural family planning.), Kiefer Infant Gender-Baby A: Male weight: 7 lb 9 oz Status at Discharge Functional status at discharge: independent ambulation Overall status at discharge: patient is back to baseline Mental Status: mental status grossly normal Speech and Movement: speech and movement normal Mood: congruent mood Affect: normal affect Exam Physical Exam Vital signs: Temp Pulse Resp BP Pulse Ox 97.9 F 70 16 111/70 97 07/02/21 07:45 07/02/21 07:45 07/02/21 07:45 07/02/21 07:45 07/02/21 07:45 Constitutional Constitutional: no acute distress Neck Exam Neck Exam: Normal Respiratory Exam Respiratory Exam: Normal Cardiovascular Exam Cardiovascular Exam: Not Done Abdominal Exam Comments: Normal palpation Fundal Exam Fundus: Below Umbilicus Rectal Exam Rectal Exam: Not Done Extremities Exam Extremity Exam: Normal Back/Spine/Pelvis Exam Back Exam: Not Done Skin Exam Skin Exam: Normal Neurological Exam Neurological Exam: Normal Psychiatric Exam Psychiatric Exam: Normal PFSH All Active Problems (Updated 07/02/21 @ 13:20 by Yamile Gonzalez MD) Vaginal delivery (Acute) 07/01/21. Edita Russell. Elective induction of labor planned (Acute) Group B streptococcal carriage complicating (Acute) (Acute) eczema (Acute) Medical History (Updated 07/02/21 @ 13:20 by Yamile Gonzalez MD) Natural family planning has used with success. Surgical History wisdom teeth extraction (~2007) Family History Grandfather Heart disease Cancer Grandmother Pulmonary embolism Grandmother Heart disease Social History Smoking/Tobacco Use Status: Never Smoking risk assessment performed?: Yes Alcohol Intake: never Substance use type: does not use Household members: spouse and children Housing: house Number of Children: 5 Education Level: high school current occupation: homemaker Additional Social history: Carlton London , Abdi, Luisa Estrada, Saida, Lamar Female Reproductive History Menstrual Age of Menarche: 15 Duration of menses: 3-5 days control method: natural family planning History History 6 Para 5 Hx # Term Pregnancies 5 Multiple births 0 Hx # Pregnancies 0 Ectopic pregnancies 0 AB induced 0 Hx Number of Living Children 5 AB spontaneous 0 Past Pregnancies Del. Date GA/Weeks # Outcome Route Wgt Sex Labor Lgth Anesthesia Location Prov Complic 07/25/12 41 No Successful vaginal 7 lb 4 oz Female 15 hrs ashwin pereyra md 12/13/13 41 No Successful vaginal 7 lb 2 oz Female iol for post dates 7.5 hrs clyde sultana 07/30/15 40 No Successful vaginal 7 lb 14 oz Female iol for post dates 12 hrs clyde sultana 04/08/17 39 No Successful vaginal 5 lb 5 oz Female iol iugr, 11 hrs aMagalys o'willi md 01/24/19 41 No Successful vaginal 6 lb 13 oz Female [address] Otilio Najera Delivery Date: 07/25/12 Last Updated by: Anup Morales CNM laceration, yet pt does know degree. as per pt uneventful delivery. al Delivery Date: 12/13/13 Last Updated by: Anup Morales CNM uneventful delivery, intact. al Delivery Date: 07/30/15 Last Updated by: Anup Morales CNM uneventful, intact. al Delivery Date: 04/08/17 Last Updated by: Anup Morales CNM uneventful, intact al DS: Data Vitals/I&O Vitals and I&O: Vital Signs Temperature 97.9 F 07/02/21 07:45 Pulse 70 07/02/21 07:45 Pulse Rhythm Regular 07/02/21 07:45 Respiratory Rate 16 07/02/21 07:45 Blood Pressure 111/70 07/02/21 07:45 Blood Pressure Mean 83 07/02/21 07:45 Pulse Oximetry 97 07/02/21 07:45 Oxygen Delivery Method Room Air 07/01/21 11:02 Oxygen Flow Rate 0 07/01/21 11:02 Pain Level 0 07/01/21 11:02 Intake & Output 07/01/21 07/02/21 07/02/21 23:59 11:59 23:59 Intake Total 137.866 / 137.866 50 / 50 Output Total 200 / 200 1000 / 1000 Balance -62.134 / -62.134 -950 / -950 Intake: IV 137.866 / 137.866 50 / 50 Output: Urine 200 / 200 1000 / 1000
[2021-07-02 19:29] VITALS: BP 119/73; PULSE 70; RESP 18; TEMP 36.9; O2SAT 98
== END 2021-07-02 20:53 | disposition home or self-care (01) | DRG 807 ==
PROVIDERS: Admitting Provider Obstetrics & Gynecology; PCP Family Medicine; Visit Provider Obstetrics & Gynecology
DX: Z37.0 Single live birth (principal); O48.0 Post-term pregnancy; O99.824 Streptococcus B carrier state complicating childbirth; Z3A.41 41 weeks gestation of pregnancy; O69.81X0 Labor and delivery complicated by cord around neck, without compression, not applicable or unspecified; Z20.822 Contact with and (suspected) exposure to COVID-19
CPT/HCPCS: 36415; 85027; 86850; 86900; 86901; 87635; J2540; J3490

== ENCOUNTER 2023-03-07 01:10 | Outpatient (CLI) | payer MEDICAID, SELFPAY ==
[2023-03-07 10:35] LABS: Abs Immature Grans 0.04 10^3/uL (0.0-0.06); Absolute Basophil Count 0.03 10^3/uL (0.0-0.2); Absolute Eosinophil Count 0.04 10^3/uL (0.0-0.7); Absolute Lymphocyte Count 1.53 10^3/uL (1.2-3.4); Absolute Monocyte Count 0.51 10^3/uL (0.1-0.8); Absolute Neutrophil Count 7.89 10^3/uL (1.2-6.7); Basophils % 0.3; Eosinophils % 0.4; HCT 39.6 % (36.0-46.0); HGB 13.5 g/dL (11.2-15.7); Immature Grans % 0.4; Lymphocytes % 15.2; MCH 30.5 pg (27.0-33.0); MCHC 34.1 % (32.0-36.0); MCV 90 fL (80-95); MPV 9.8 fL (8.0-11.0); Monocytes % 5.1; Neutrophils % 78.6; Platelet Count 270 10^3/uL (130-400); RBC 4.42 10^6/uL (3.93-5.22); RDW 13.4 % (11.7-14.6); RDW-SD 44.2 fL; WBC 10.04 10^3/uL (4.4-10.8)
[2023-03-08 09:13] LABS: Hepatitis B Surface Ag Negative (Negative)
[2023-03-08 09:46] LABS: Hepatitis C Ab w Rflx HCV PCR Negative (Negative)
[2023-03-08 10:04] LABS: HIV-1/2 Ag & Ab Screen Negative (Negative)
[2023-03-08 10:58] LABS: Varicella IgG Antibody Positive (See Note)
[2023-03-08 10:59] LABS: Rubella IgG Ab (UVM) Positive (See Note)
[2023-03-09 16:02] LABS: Syphilis IgG w/Reflex Nonreactive (Nonreactive)
== END 2023-03-07 01:11 | disposition home or self-care (01) ==
PROVIDERS: PCP Family Medicine; Visit Provider Advanced Practice Midwife
DX: Z34.91 Encounter for supervision of normal pregnancy, unspecified, first trimester (principal)
CPT/HCPCS: 36415; 86787; 86803; 86850; 86900; 86901; 87340; 87389; 85025; 86762; 86780

== ENCOUNTER 2023-03-07 11:34 | Outpatient (REF) | payer MEDICAID, SELFPAY ==
--- NOTE | 2023-03-07 09:45 | PAPFT_PTH ---
PATIENT: Melissa De La Cruz LOC: [facility] U#:[id number] AGE/SX: 33/F ROOM: RE03/07/[address]: Serena Pemberton CNM : 1990 BED: DIS: 03/07/2023 SPEC #: [id number] RECD: 03/07/23 13:00 STATUS: MONIKA REDuane #: [id number] MARVA: 03/07/23 09:[address]: Serena Pemberton DEPT: [facility] [place] Cytology RECD BY: Alicia Do ENTERED: 03/07/23 13:00 SP TYPE: PAPFT OTHR DR: Leonor Quezada Tissues: 1 - CX/ENDOCX FOR PAP SMEARS Procedures: PAP THIN PREP/UVM Screening Comments: [id number] (CHLAMYDIA/GC)
[2023-03-07 16:08] LABS: *AMPHETAMINES SCREEN URINE Negative (Negative); *BARBITURATES SCREEN URINE Negative (Negative); *BENZODIAZEPINES SCREEN URINE Negative (Negative); Cannabinoids THC Negative (Negative); Cocaine Screen,Urine Negative (Negative); METHADONE URINE SCREEN Negative (Negative); OPIATES URINE SCREEN Negative (Negative); Tricyclic Antidepressants Negative (Negative)
[2023-03-08 14:44] LABS: Chlamydia Result Negative (Negative); GC Result Negative (Negative)
[2023-03-13 03:59] LABS: Buprenorphine Negative ng/mL (Cutoff: 5.0); Norbuprenorphine Negative ng/mL (Cutoff: 2.5)
== END 2023-03-07 11:35 | disposition home or self-care (01) ==
LOC: LBN 11:34
PROVIDERS: PCP Family Medicine; Visit Provider Advanced Practice Midwife
DX: Z34.91 Encounter for supervision of normal pregnancy, unspecified, first trimester (principal); Z12.4 Encounter for screening for malignant neoplasm of cervix; Z11.3 Encounter for screening for infections with a predominantly sexual mode of transmission
CPT/HCPCS: 80307; 80348; 87491; 87591; 88142; 87086

== ENCOUNTER → 2023-04-28 00:23 | Outpatient (CLI) | payer MEDICAID, SELFPAY ==
--- NOTE | 2023-04-28 07:30 | DI.US_ITS ---
Exam(s) US OB 2-3 TRIMESTER EXAM: US OB 2-3 TRIMESTER CLINICAL HISTORY: anatomy,z34.91. TECHNIQUE: Transabdominal obstetrical ultrasound performed. COMPARISON: US POCUS EXAM from 02/11/2023 FINDINGS: Number of fetuses: One. position: Variable Placental grade: 1 Placental location: Posterior. No evidence of previa. BIOMETRIC DATA: BPD: 41mm = 18+ 4 weeks HC: 161mm = 18+ 6 weeks AC: 142mm = 18+ 4 weeks FL: 30mm = 18+ 1 weeks Cisterna Magna: 5 mm Cerebellum: 1.9 cm EFW: 284 grms 46% Composite Age: 19+ 0 weeks EDC by US: 22 Sep 2023 Heart Rate: 143BPM Amniotic fluid : Amount of fluid is within normal limits. ANATOMICAL SURVEY: Four-chambered heart: Unremarkable. LVOT: Unremarkable. RVOT: Unremarkable. Left-sided stomach: Unremarkable. urinary bladder: Unremarkable. Bilateral kidneys: Unremarkable. Three-vessel cord: Unremarkable. Cord insertion: Unremarkable. Posterior fossa:Unremarkable. ventricles: Unremarkable. nose: Unremarkable. lips: Unremarkable. palate: Unremarkable. spine: Unremarkable. Two arms and two legs: Unremarkable. IMPRESSION: 1. Single live intrauterine gestation with composite age 19+ 0 weeks. 2. Normal anatomic survey. DATA REPOSITORY:
== END ==
PROVIDERS: PCP Family Medicine; Visit Provider Advanced Practice Midwife
DX: Z34.91 Encounter for supervision of normal pregnancy, unspecified, first trimester (principal)
CPT/HCPCS: 76805

== ENCOUNTER 2023-06-28 03:12 | Outpatient (CLI) | payer MEDICAID, SELFPAY ==
[2023-06-28 12:18] LABS: Abs Immature Grans 0.08 10^3/uL (0.0-0.06); Absolute Basophil Count 0.03 10^3/uL (0.0-0.2); Absolute Eosinophil Count 0.02 10^3/uL (0.0-0.7); Absolute Lymphocyte Count 1.41 10^3/uL (1.2-3.4); Absolute Monocyte Count 0.54 10^3/uL (0.1-0.8); Basophils % 0.3; Eosinophils % 0.2; HCT 34.9 % (36.0-46.0); HGB 11.9 g/dL (11.2-15.7); Immature Grans % 0.8; Lymphocytes % 13.9; MCH 30.8 pg (27.0-33.0); MCHC 34.1 % (32.0-36.0); MCV 90 fL (80-95); MPV 9.8 fL (8.0-11.0); Monocytes % 5.3; Neutrophils % 79.5; Platelet Count 250 10^3/uL (130-400); RBC 3.86 10^6/uL (3.93-5.22); RDW 13.6 % (11.7-14.6); WBC 10.18 10^3/uL (4.4-10.8)
[2023-06-28 12:30] LABS: Glucose,1 Hr (Glucola) 94 mg/dL (80-140)
== END 2023-06-28 03:13 | disposition home or self-care (01) ==
LOC: LBO 03:12
PROVIDERS: PCP Family Medicine; Visit Provider Obstetrics & Gynecology
DX: Z34.91 Encounter for supervision of normal pregnancy, unspecified, first trimester (principal)
CPT/HCPCS: 36415; 82950; 85025

== ENCOUNTER 2023-08-29 11:34 | Outpatient (REF) | payer MEDICAID, SELFPAY | END 2023-08-29 11:35 | disposition home or self-care (01) | LOC: LBN 11:34 | PROVIDERS: PCP Family Medicine; Visit Provider Obstetrics & Gynecology | DX: Z34.93 Encounter for supervision of normal pregnancy, unspecified, third trimester (principal); Z3A.36 36 weeks gestation of pregnancy; Z36.85 Encounter for antenatal screening for Streptococcus B | CPT/HCPCS: 87081 ==

== ENCOUNTER 2023-09-06 17:48 | Outpatient (CLI) | payer MEDICAID, SELFPAY ==
[2023-09-06 19:46] VITALS: BP 131/69; PULSE 90
[2023-09-06 20:01] LABS: Bilirubin Negative (Negative); Blood Large (Negative); Clarity Cloudy (Clear); Glucose Negative (Negative); Ketones Negative (Negative); Leukocyte Esterase Small (Negative); Nitrite Negative (Negative); Specific Gravity 1.015 (1.005-1.025); Urobilinogen 0.2 mg/dL (Up to 0.2)
[2023-09-06 20:06] VITALS: BP 131/69; PULSE 90; RESP 18
[2023-09-06 20:10] LABS: Epithelial Cells Rare HPF (Negative); RBC >50 HPF (0-2); WBC 20-50 HPF (0-5)
[2023-09-06 20:11] LABS: Bacteria Rare HPF (Negative); C & S Indicated? Yes; Casts Negative LPF (Negative); Crystals Negative HPF (Negative); Mucus Negative (Negative); Other Cells Rare Transitional (Negative)
[2023-09-06 20:14] VITALS: BP 131/69; PULSE 90
--- NOTE | 2023-09-07 07:21 | W.OBNST ---
Date of service: 09/07/23 Time of Service: 07:21 NST Evaluation Reason for NST Reasons for Nonstress Test: OTHER, SEE COMMENT Reason for NST Other: dysuria Gestational Age Gestational Age in Weeks and Days: 38 Weeks and 0Days Test and Monitor Explained Test/Monitor Explained: Test Explained, Monitor Explained and Patient Verbalized Understanding Vital Signs Blood Pressure: 131/69 Pulse: 90 Urine Results Urine Protein: Positive Urine Ketones: Negative Urine Glucose: Negative Urine Blood: Positive NST Information Date on Monitor: 09/06/23 Time on Monitor: 19:50 Date off Monitor: 09/06/23 Time off Monitor: 20:45 Total Time on Monitor: 55 NST Interventions: PO Hydration NST Evaluation Patient States Movement: Present FHR Baseline: 145 Variability: Moderate 6-25 bpm Accelerations: 15x15 Decelerations: None NST Results: Reactive Note Ultrasound Done: N/A. NST Note Note: Category 1, reactive NST. NST Reviewed and Verified by: Irais Diaz
[2023-09-07 07:22] VITALS: BP 131/69; PULSE 90
== END 2023-09-06 21:03 | disposition home or self-care (01) ==
LOC: BCD 17:48 → OBS 17:54
PROVIDERS: PCP Family Medicine; Visit Provider Obstetrics & Gynecology
DX: O26.893 Other specified pregnancy related conditions, third trimester (principal); R30.0 Dysuria; Z3A.38 38 weeks gestation of pregnancy
CPT/HCPCS: 59025; 87077; 81003; 81015; 87086; 87186

== ENCOUNTER 2023-09-21 07:35 | Inpatient (IN) | payer MEDICAID, SELFPAY ==
[2023-09-21] VITALS (12 sets, daily range): BP systolic 97–121; BP diastolic 56–70; PULSE 57–80; RESP 16–18; TEMP 36.6–36.7; O2SAT 99
--- NOTE | 2023-09-21 07:46 | HPE_ITS ---
Date of service: 09/21/23 Time of Service: 07:46 Assessment and Plan Assessment and plan (1) Grand multiparity: Status: Acute Assessment and plan: Planned labor induction. Favorable Aguayo score. Begin Pitocin augmentation. Anticipate vaginal . High risk for hemorrhage due to grand multiparity. Active management of the third stage. IV access. (2) Encounter for induction of labor: Status: Acute OB-HPI Labor/Delivery History of Present Illness Reason for Visit: IOL Chief Complaint: Scheduled Induction of Labor Indication for Induction: Other (Term elective labor induction). URSZULA Calculator Estimated Delivery Date Method Current WG Current Estimate 09/20/23 LMP (Certain) 40w 1d Other Estimates 09/23/23 Ultrasound #1 39w 5d Comments: Term inductio History of Present Expected Delivery Route/Plan MD care; [facility] Specific Issues/Plan 1. Grand multip Narrative: Patient presents for labor induction at 40 weeks and 1 day. She is a grand multipara with a increased risk for hemorrhage for this reason. She has an uncomplicated to this point. The risk, benefits, and alternatives of labor induction were discussed. She has a favorable cervix with a Aguayo score of 9. She will start with Pitocin augmentation and artificial rupture of membranes when necessary. She has had no need for regional analgesia and past deliveries. All questions were answered Informed Consent Informed Consent: Induction of Labor and Risk,Benefits,Alternatives Discussed Review of Systems All systems reviewed & are unremarkable except as noted in HPI and below Constitutional Constitutional: Reports as per HPI Eyes Eyes: Reports as per HPI and Reports system reviewed and no additional complaints, except as documented ENT Ears, Nose, Mouth, and Throat: Reports system reviewed and no additional complaints, except as documented and Reports as per HPI Cardiovascular Cardiovascular: Reports system reviewed and no additional complaints, except as documented, Denies chest pain and Denies irregular heart rhythm Respiratory Respiratory: Reports system reviewed and no additional complaints, except as documented, Denies chest congestion and Denies cough Gastrointestinal Gastrointestinal: Reports system reviewed and no additional complaints, except as documented Genitourinary Genitourinary: Reports system reviewed and no additional complaints, except as documented Neurologic Neurologic: Reports system reviewed and no additional complaints, except as documented PFSH All Active Problems (Updated 09/21/23 @ 07:51 by Irais Diaz DO) Encounter for induction of labor (Acute) (Acute) Grand multiparity (Acute) Medical History eczema Surgical History wisdom teeth extraction (~2007) Family History Grandfather No problems noted. Grandmother Pulmonary embolism Grandmother No problems noted. Maternal Grandfather Cancer Paternal Grandfather Heart disease Paternal Grandmother Heart disease Father Hyperlipidemia Social History Smoking/Tobacco Use Status: Never Smoking risk assessment performed?: Yes Alcohol Intake: never Substance use type: does not use Household members: spouse and children Housing: house Number of Children: 6 Education Level: high school current occupation: homemaker Additional Social history: Carlton London , Abdi, Luisa Estrada, Saida, Marcio Newton Female Reproductive History Menstrual Age of Menarche: 15 Duration of menses: 3-5 days control method: natural family planning History History 7 Para 6 Hx # Term Pregnancies 6 Multiple births 0 Hx # Pregnancies 0 Ectopic pregnancies 0 AB induced 0 Hx Number of Living Children 6 AB spontaneous 0 Past Pregnancies Del. Date GA/Weeks # Preg Succ Route Wgt Sex Labor Lgth Anesth esia Location [facility] 07/25/12 41 No vaginal 7 lb 4 oz Female 15 hrs ashwin pereyra md 12/13/13 41 No vaginal 7 lb 2 oz Female iol for post dates 7.5 hrs clyde sultana 07/30/15 40 No vaginal 7 lb 14 oz Female iol for post dates 12 hrs clyde sultana 04/08/17 39 No vaginal 5 lb 5 oz Female iol iugr, 11 hrs rupal hwang md 01/24/19 41 No vaginal 6 lb 13 oz Female [address] Otilio Najera 07/01/21 41 No vaginal 7 lb 9 oz Male 9 hours 6 minutes [facility] [place] Delivery Date: 07/25/12 Last Updated by: Anup Morales CNM laceration, yet pt does know degree. as per pt uneventful delivery. al Delivery Date: 12/13/13 Last Updated by: Anup Morales CNM uneventful delivery, intact. al Delivery Date: 07/30/15 Last Updated by: Anup Morales CNM uneventful, intact. al Delivery Date: 04/08/17 Last Updated by: Anup Morales CNM uneventful, intact al Delivery Date: 07/01/21 Last Updated by: Michelle Woodard MD IOL for post dates Marcio Drew Meds Allergies and Home Medications Allergies Allergy/AdvReac Type Severity Reaction Status Date / Time Ingredient in [place] Food Allergy Intermediate Itchy Uncoded 09/20/23 15:26 Rash, swelling Home Medications Medication Instructions Recorded Confirmed Type prenat.vits,grey,pba-misr-timvf 1 tab PO DAILY 11/06/18 09/20/23 History cholecalciferol (vitamin D3) 250 250 mcg PO DAILY 02/01/23 09/20/23 History mcg (10,000 unit) capsule Exam Constitutional Constitutional: no acute distress Detailed Labor and Delivery Exam Aguayo Score: Cervical Points Exam 0 1 2 3 Dilation Closed 1-2cm 3-4 cm 5-6cm Effacement 0-30% 40-50% 60-70% 80% Consistency Firm Medium Soft Station -3 -2 -1,0 +1,+2 Position Posterior Mid Anterior AGUAYO Score(Cervical Ripeness Score): 9 Amniotic Membrane Status: Intact HEENT Exam HEENT Exam: Normal Neck Exam Neck Exam: Normal Respiratory Exam Respiratory Exam: Normal Cardiovascular Exam Cardiovascular Exam: Normal Abdominal Exam Abdominal Exam: Normal Exam Exam: Normal Extremities Exam Extremities Exam: Normal Back/Spine/Pelvis Exam Pelvis Adequate: Yes Neurological Exam Neurological Exam: Normal Psychiatric Exam Psychiatric Exam: Normal Risk Assessment Risk for Shoulder Dystocia Historical/Initial OB: NEGATIVE FOR: Pelvic Abnormality, Pre- BMI>30, Previous Shoulder Dystocia or Previous Macrosomia Date/Initial: KH; 03/07/23 Delivery Plan @ 36wks: Delivery Plan @ 40 wks: Vaginal Risk for Pre-Eclampsia Yes, if one or more: NEGATIVE FOR: Hx Pre-E/Gest HTN, Chronic HTN, Multiple Gestation, Pre-gestational DM, Renal Disease, Systemic Lupus or APA Syndrome Yes, if 2 or more: POSITIVE FOR: Previous IUGR; NEGATIVE FOR: Nulliparity, Age>= 35 yrs, >10yr btwn pregnancies, BMI>30, ethinicty or Mother/Sister w/ Pre-E Risk for Post- Hemorrhage Initial: POSITIVE FOR: Grand Multiparity; NEGATIVE FOR: Multiple Gestation, Previous PPH, Known Clotting Deficiency or Anticoagulation Counseled re: Active Management: Yes Date/Initials: YANELY; 03/07/23, IMER 09/21/2023 Risks Reviewed Risks Reviewed Upon Admission: Yes
[2023-09-21 08:27] LABS: HCT 34.1 % (36.0-46.0); HGB 11.8 g/dL (11.2-15.7); MCH 31.6 pg (27.0-33.0); MCHC 34.6 % (32.0-36.0); MCV 91 fL (80-95); MPV 9.9 fL (8.0-11.0); Platelet Count 200 10^3/uL (130-400); RBC 3.74 10^6/uL (3.93-5.22); RDW 13.3 % (11.7-14.6); WBC 10.99 10^3/uL (4.4-10.8)
[2023-09-21] MEDS: Normal Saline Flush 10 ML SYR IVP (08:30)
[2023-09-21] MEDS: Oxytocin/Normal Saline 30 UNIT/500 ML BAG 1 UNITS IV (08:30)
[2023-09-21] MEDS: Lactated Ringers 1,000 ML 125 ML IV (08:50)
--- NOTE | 2023-09-21 12:52 | W.PM.OBNL1 ---
Date of service: 09/21/23 Time of Service: 12:52 Informed Consent Informed Consent: Induction of Labor and Risk,Benefits,Alternatives Discussed Pelvic Exam Dilation: 5 Effacement (%): 60 station: -2 Contractions Monitor Mode: External Contraction Frequency(min): 2-3 Contraction Duration(sec): 60 Intensity: Moderate Fetus A Monitor: External (US) Heart Rate Baseline: 140 Presentation: Cephalic Variability: Moderate (6-25 BPM) Categories: Category I Assessment and Plan Assessment and plan (1) Encounter for induction of labor: Status: Acute Assessment and plan: Continue pitocin. AROM in the near future. Anticipate (2) Grand multiparity: Status: Acute Objective Abnormal lab results 09/21/23 Range/Units 08:15 WBC 10.99 H (4.4-10.8) 10^3/uL RBC 3.74 L (3.93-5.22) 10^6/uL Hct 34.1 L (36.0-46.0) % Temp Pulse Resp BP Pulse Ox 97.9 F 73 16 109/67 99 09/21/23 10:14 09/21/23 10:14 09/21/23 10:14 09/21/23 10:14 09/21/23 07:51 Laboratory Results WBC 10.99 10^3/uL (4.4-10.8) H 09/21/23 08:15 RBC 3.74 10^6/uL (3.93-5.22) L 09/21/23 08:15 Hgb 11.8 g/dL (11.2-15.7) 09/21/23 08:15 Hct 34.1 % (36.0-46.0) L 09/21/23 08:15 MCV 91 fL (80-95) 09/21/23 08:15 MCH 31.6 pg (27.0-33.0) 09/21/23 08:15 MCHC 34.6 % (32.0-36.0) 09/21/23 08:15 RDW 13.3 % (11.7-14.6) 09/21/23 08:15 Plt Count 200 10^3/uL (130-400) 09/21/23 08:15 MPV 9.9 fL (8.0-11.0) 09/21/23 08:15 ABO/Rh A Positive 09/21/23 08:15 Antibody Screen NEGATIVE 09/21/23 08:15 Subjective Interval history since last seen: Pitocin at 10. UC q 3 minutes. Slightly more uncomfortable. Results Hemoglobin/Hematocrit: Hgb 11.8 g/dL (11.2-15.7) 09/21/23 08:15 Hct 34.1 % (36.0-46.0) L 09/21/23 08:15 Abnormal Lab Findings: Abnormal Labs 09/21/23 08:15 WBC 10.99 H RBC 3.74 L Hct 34.1 L
--- NOTE | 2023-09-21 14:57 | OBVDS_ITS ---
Date of service: 09/21/23 Time of Service: 14:57 OB Labor/ Delivery Information Baby A Delivery Delivery Method: Spontaneaous Presentation: Cephalic Cephalic Position: Vertex Vertex Position: Right Occipital Anterior Cord Description-Baby A: 3 Vessels and True Knot Amniotic Fluid: Clear Estimated Blood Loss: 200 Delivery Outcome: Liveborn Complications: None Transferred: Remains with Mother Note: Patient was admitted this morning for labor induction at 40 weeks and 1 day. She is a grand multipara. She received Pitocin augmentation and progressed into normal course of labor. She received no analgesia. Her group B strep status is negative. She became completely dilated with a vertex at a +2 station. At that point, she had artificial rupture of membranes for clear fluid and with 2 maternal pushes delivered with a viable male over an intact perineum. Shoulders followed with ease. Three-vessel cord was noted clamped x 2 and cut after the appropriate delayed cord clamping time. Baby was delivered to the mom's chest. Cord blood sample was obtained. The placenta delivered spontaneously and was noted to be intact. There was a true knot in the cord which was discussed with parents. There were no heart rate tracing abnormalities throughout labor. On inspection, there is no evidence of cervical, vaginal, perineal, or vulvar lacerations noted. Qualitative blood loss was 200 mL. Mom and infant Latrell are in stable condition with strong bonding noted. Providers Doctor: Irais Diaz Nurse: Maranda Hartman Nurse: cSar Rivers Labor/Delivery Information Number of Babies in Womb: 1 Steroids Given: None Reason Steroids Not Administered: N/A Group Beta Strep: Negative Antibiotics Administered: No Rubella Status: Immune Blood Type: A+ Varicella Immunity: Immune Maternal Complications: None Shoulder Dystocia: No Stages of Labor Onset of Labor Date: 09/21/23 Onset of Labor Time: 12:00 Complete Dilatation Date: 09/21/23 Complete Dilatation Time: 14:28 Labor - Stage 1 Duration: 2 hours and 28 minutes ROM Baby A: 09/21/23 ROM Baby A: 14:28 ROM Total Time- Baby A: [id number] Infant Delivery Date-Baby A: 09/21/23 Delivery Time-Baby A: 14:36 Labor Stage 2 Duration: 8 minutes Placenta Delivery Date-Baby A: 09/21/23 Placenta Delivery Time-Baby A: 14:43 Labor-Stage 3 Duration: 7 minutes Total Length of Labor-Baby A: 2 hours and 36 minutes Placenta Cultured: No Placenta Status: Delivered Baby A Infant Gender: Male Gestational Status: Term (39-41.6 wks) Gestational Age in Weeks/Days: 40 Weeks and 1 Days Length-Baby A: 21 in Score-1 Minute Interval(Baby A) Heart Rate-1 minute: 100 BPM or Greater Respiratory Effort- 1 minute: Spontaneous/Strong Cry Muscle Tone-1 minute: Active Movement Reflex Response-1 minute: Prompt Response Color-1 minute: [place]/No Cyanosis Total Score-1 minute: 10 Score-5 Minute Interval(Baby A) Heart Rate- 5 minute: 100 BPM or Greater Respiratory Effort-5 minute: Spontaneous/Strong Cry Muscle Tone-5 minute: Active Movement Reflex Response-5 minute: Prompt Response Color-5 minute: Julia[place]/No Cyanosis Total Score- 5 minute: 10
[2023-09-22 04:00] VITALS: BP 100/59; PULSE 55; RESP 18; TEMP 36.5
--- NOTE | 2023-09-22 07:52 | OBPPV_ITS ---
Date of service: 09/22/23 Time of Service: 07:52 Assessment and Plan Assessment and plan (1) Normal spontaneous vaginal delivery: Status: Acute Assessment and plan: day #1 status post normal spontaneous vaginal delivery. Doing well. Discharge home today. Continue breast-feeding. Follow-up in 2 and 6 weeks Subjective Subjective Interval history: Patient seen and examined doing well. Breast-feeding without difficulty. Anticipate discharge home today. [place] circumcision at parents request Patient's Mood: Appropriate baby status: Doing well [place] feeding status: Exclusively breast feeding Exam Physical Exam Vital signs: Temp Pulse Resp BP Pulse Ox 97.7 F 55 L 18 100/59 L 99 09/22/23 04:00 09/22/23 04:00 09/22/23 04:00 09/22/23 04:00 09/21/23 18:00 Vital Signs Reviewed: Yes HEENT Exam HEENT Exam: Normal Neck Exam Neck Exam: Normal Respiratory Exam Respiratory Exam: Normal Cardiovascular Exam Cardiovascular Exam: Normal Abdominal Exam Comments: Soft, nontender Fundal Exam Fundus: Below Umbilicus and Firm Extremities Exam Extremity Exam: Normal; negative Calf Tenderness Neurological Exam Neurological Exam: Normal Psychiatric Exam Psychiatric Exam: Normal Results Hemoglobin/Hematocrit: Hgb 11.8 g/dL (11.2-15.7) 09/21/23 08:15 Hct 34.1 % (36.0-46.0) L 09/21/23 08:15 Abnormal Lab Findings: Abnormal Labs 09/21/23 08:15 WBC 10.99 H RBC 3.74 L Hct 34.1 L
--- NOTE | 2023-09-22 07:56 | DSE_ITS ---
Date of service: 09/22/23 Time of Service: 07:56 DS: Diagnosis Discharge Diagnosis (1) Normal spontaneous vaginal delivery: Status: Acute Asessment and Plan: day #1 status postnormal spontaneous vaginal delivery after labor induction at term. Doing well. No issues or concerns. Breast-feeding without difficulty. Prescription sent to the pharmacy. Will follow-up in women's wellness in 2 and 6 weeks. All questions answered. Discharge Plan Disposition Patient Disposition: Home Condition: Good Discharge Details Reason For Visit: IOL Admit Date/Time: 09/21/23 07:35 Admit Provider: Irais Diaz Attending Provider: Irais Diaz Hospital Course Hospital Course: Patient presented for labor induction at 40 weeks and 1 day. She received Pitocin and went into active labor. She had artificial rupture membranes at full dilation. She went on to deliver a normal spontaneous vaginal delivery, male infant named Latrell. She had uncomplicated course and was discharged home day #1. Home Meds and New Rx's Prescriptions: New ibuprofen 800 mg tablet 800 mg PO Q8H Qty: 60 0RF No Action prenat.vits,grey,xdb-[id number] tablet 1 tab PO DAILY cholecalciferol (vitamin D3) 250 mcg (10,000 unit) capsule 250 mcg PO DAILY Discharge Instructions Stand Alone Forms: BC Instructions, BC Post Vaginal Deliver Activity:: Activity as Tolerated Equipment/Supplies:: No Equipment Needed Diet:: As Tolerated Discharge Orders Discharge Orders: Discharge Order (Routine); Ordered 09/22/23 Ordered By: Irais Diaz OB:DS Summary Summary Vaginal Delivery Method: Spontaneaous Episiotomy Description: None Laceration Description: None Laceration Extension: N/A Contraception Discussed Contraception Discussed: Yes, Gender-Baby A: Male weight: 7 lb 5.815 oz Status at Discharge Functional status at discharge: independent ambulation Overall status at discharge: patient is progressing back to baseline Mental Status: mental status grossly normal Speech and Movement: speech and movement normal Mood: congruent mood Affect: normal affect Quality:SDOH Health Related Social Needs: No Data to Display Exam Physical Exam Vital signs: Temp Pulse Resp BP Pulse Ox 97.7 F 55 L 18 100/59 L 99 09/22/23 04:00 09/22/23 04:00 09/22/23 04:00 09/22/23 04:00 09/21/23 18:00 Vital Signs Reviewed: Yes Narrative: See physical exam from progress note dated 09/22/2023 [facility] All Active Problems (Updated 09/21/23 @ 15:00 by Irais Diaz DO) Normal spontaneous vaginal delivery (Acute) Labor induction at 40 weeks and 1 day. Viable male Latrell 09/21/2023. Encounter for induction of labor (Acute) (Acute) Grand multiparity (Acute) Medical History eczema Surgical History wisdom teeth extraction (~2007) Family History Grandfather No problems noted. Grandmother Pulmonary embolism Grandmother No problems noted. Maternal Grandfather Cancer Paternal Grandfather Heart disease Paternal Grandmother Heart disease Father Hyperlipidemia Social History Smoking/Tobacco Use Status: Never Smoking risk assessment performed?: Yes Alcohol Intake: never Substance use type: does not use Household members: spouse and children Housing: house Number of Children: 6 Education Level: high school current occupation: homemaker Do you feel safe at home: Yes Do you feel safe in your relationship?: Yes Additional Social history: Noa- Surya , Abdi, Natalie, Luisa, Saida, Lamar, Marcio Female Reproductive History Menstrual Age of Menarche: 15 Duration of menses: 3-5 days control method: natural family planning History History 7 Para 6 Hx # Term Pregnancies 6 Multiple births 0 Hx # Pregnancies 0 Ectopic pregnancies 0 AB induced 0 Hx Number of Living Children 6 AB spontaneous 0 Past Pregnancies Del. Date GA/Weeks # Preg Succ Route Wgt Sex Labor Lgth Anesth esia Location Prov Compl 07/25/12 41 No vaginal 7 lb 4 oz Female 15 hrs ashwin pereyra md 12/13/13 41 No vaginal 7 lb 2 oz Female iol for post dates 7.5 hrs clyde sultana 07/30/15 40 No vaginal 7 lb 14 oz Female iol for post dates 12 hrs clyde sultana 04/08/17 39 No vaginal 5 lb 5 oz Female iol iugr, 11 hrs rupal hwang md 01/24/19 41 No vaginal 6 lb 13 oz Female [address] Otilio Najera 07/01/21 41 No vaginal 7 lb 9 oz Male 9 hours 6 minutes [facility] [place] Delivery Date: 07/25/12 Last Updated by: Anup Morales CNM laceration, yet pt does know degree. as per pt uneventful delivery. al Delivery Date: 12/13/13 Last Updated by: Anup Morales CNM uneventful delivery, intact. al Delivery Date: 07/30/15 Last Updated by: Anup Morales CNM uneventful, intact. al Delivery Date: 04/08/17 Last Updated by: Anup Morales CNM uneventful, intact al Delivery Date: 07/01/21 Last Updated by: Michelle Woodard MD IOL for post dates [facility] DS: Data Vitals/I&O Vitals and I&O: Vital Signs Temperature 97.7 F 09/22/23 04:00 Temperature Source Oral 09/22/23 04:00 Pulse 55 L 09/22/23 04:00 Pulse Rhythm Regular 09/21/23 20:35 Respiratory Rate 18 09/22/23 04:00 Blood Pressure 100/59 L 09/22/23 04:00 Blood Pressure Mean 72 09/22/23 04:00 Pulse Oximetry 99 09/21/23 18:00 Oxygen Delivery Method Room Air 09/21/23 07:51 Oxygen Flow Rate 0 09/21/23 07:51 Intake & Output 09/21/23 09/21/23 09/22/23 11:59 23:59 11:59 Intake Total 10.5 / 10.5 Output Total 1400 / 1400 Balance 10.5 / -1389.5 -1400 / -1389.5 Weight 152 lb Intake: IV 10.5 / 10.5 Output: Urine 1400 / 1400 Other: Urine Color Pale Pale Data Completed and Pending Labs on day of discharge: Labs from last 24 hours 09/21/23 08:15 WBC 10.99 H RBC 3.74 L Hgb 11.8 Hct 34.1 L MCV 91 MCH 31.6 MCHC 34.6 RDW 13.3 Plt Count 200 MPV 9.9 ABO/Rh A Positive Antibody Screen NEGATIVE
[2023-09-22 09:05] VITALS: BP 115/59; PULSE 64; RESP 16; TEMP 36.7; O2SAT 100
== END 2023-09-22 17:00 | disposition home or self-care (01) | DRG 807 ==
PROVIDERS: Admitting Provider Obstetrics & Gynecology; Visit Provider Obstetrics & Gynecology
DX: O48.0 Post-term pregnancy (principal); Z37.0 Single live birth; Z3A.40 40 weeks gestation of pregnancy; O69.2XX0 Labor and delivery complicated by other cord entanglement, with compression, not applicable or unspecified; Z64.1 Problems related to multiparity
CPT/HCPCS: 36415; 85027; 86850; 86900; 86901; 59200